=== PATIENT | male | born 1965 | race Caucasian/White ===

== ENCOUNTER → 2020-10-05 10:56 | Outpatient (CLI) | payer BC, SELFPAY ==
--- NOTE | 2020-10-05 11:00 | FL_ITS ---
PROCEDURE: FL BARIUM SWALLOW MODIFIED CLINICAL INDICATION: ESOPHAGEAL DYSPHAGIA COMPARISON: No exams were available for comparison TECHNIQUE: Patient administered varying consistencies of barium contrast, while viewed in lateral position under real-time fluoroscopy with cine recording. FLUOROSCOPY TIME:2 minutes and 4 seconds The study was performed in conjunction with speech pathologist. Please see that report & recommendations. FINDINGS: Patient was given varying consistencies of barium. . no aspiration or penetration.. No significant spillage or residual. There was some difficulty with bolus formation with mechanical soft. IMPRESSION: Unremarkable modified barium swallow. Please see speech pathologist report and recommendations. Dictated by: West Riley MD 10/09/2020 09:31 West Riley MD in [place] 10/09/2020 09:31
--- NOTE | 2020-10-09 08:33 | HMH.SLMBS2 ---
Speech & Language Evaluation Speech/Language Mod Barium Swallow Start: 10/09/20 08:29 Freq: once Status: Complete Protocol: Document 10/05/20 12:15 GAMALIEL (Rec: 10/09/20 08:33 GAMALIEL [id number]) General Information General Current Food Consistancy Regular,Thin Liquids Dentition Partial - Upper & Lower Oxygen Status Room Air Facial Symmetry Symmetrical Patient Orientation Person,Place,Time,Situation Ability to Follow Directions Excellent Communication Ability No Impairment MBS Recommendations Diet Dietary Recommendations Regular,Thin Liquids Referrals/Other Recommended Referrals GI Consult Mod Barium Swallow Impressions Summary and Impressions Oral Phase Impression No Impairment (WFL) Oral Phase Summary Mr. Hoover was given the following consistencies: thins via straw and open cup, pudding, mechancial soft, regular, and pill with thin wash. No oral phase impairments are noted. Pharyngeal Phase Impression No Impairment (WFL) Pharyngeal Phase Summary No pharyngeal phase impairments noted. However, it was noted that the bolus for mechanical soft and regular does slow once in the esophageal phase of swallowing . It is recommended that a GI consult be considered. Speech/Language MBS Assessment/Goals/Plan Assessment Date of Evaluation: 10/05/20 Evaluation Type Initial Certification Assessment/Problems Dysphagia Does Patient Qualify for Service No Qualify/Failure Comment No overt signs/symptoms of dysphagia were noted during examination. Recommendations PHYSICIAN CERTIFICATION: The specified therapy services are required, authorized, and reviewed every 30 days. Diet Recommendations Normal Liquid Type Recommendations Normal/Thin Plan Pt/Guardian verbally ack understanding Yes of dx/prognosis/goals G -code Required No Mod Barium Swallow Setup Exam Setup Radiologist West Riley Level of Consciousness Awake,Alert,Appropriate, Follows Commands Position (degrees) 90 Mod Barium Swallow-Lat View Textures Lateral View Food Presentation Thin Liquid via Cup,Thin Liquid via Straw,Ground Food- Regular,Barium Tablet,Regular Food,Pu
== END ==
PROVIDERS: PCP Family Medicine; Visit Provider Family Medicine
DX: R13.10 Dysphagia, unspecified (principal)
CPT/HCPCS: 70371; 92611